=== PATIENT | female | born 1995 | race Caucasian/White ===

== ENCOUNTER 2016-06-02 14:05 | Emergency (ER) | payer OTHER ==
--- NOTE | ~2016-06-02 | EKG ---
PATIENT: GLENN RO UNIT #: [id number] Ventricular Rate: 98 BPM Atrial Rate: 98 BPM P-R Interval: 130 ms QRS Duration: 74 ms Q-T Interval: 346 ms QTC Calculation(Bezet): 441 ms P [place]: 57 degrees Calculated R [place]: 75 degrees Calculated T [place]: 44 degrees Diagnosis Line: Normal sinus rhythm Diagnosis Line: Normal ECG Diagnosis Line: When compared with ECG of 07-NOV-2015 22:52, Diagnosis Line: No significant change was found Diagnosis Line: Confirmed by WAGNER FORBES MD ([id number]) on 06/05/2016 Diagnosis Line: 10:46:26 PM INTERPRETING MD: LEIDY BARNARD
[~2016-06-02 14:05] MED LIST: APRISO0.375 GM PO; AUGMENTIN; AUGMENTIN PO; BACTRIM 400-801 TA1 PO; BACTRIM DS TABL1 TA1 PO; BACTROBAN22 GM TOP; BACTROBAN22 GM TP; BENTYL20 M1 PO; BENTYL20 MG PO; CLARITIN10 M1; DIFLUCAN PO; FLAGYL PO; FLOXIN10 ML OT; LAMICTAL PO; LORATADINE; MEDROL4 MG/DOSE- PO; MOOD STABILIZER; MOTRIN600 M2 PO; NO MEDICATIONS; PHENERGAN25 M1 PO; PHENERGAN25 MG PO; PREDNISONE10 MG/DOSE PO; ROBAXIN500 MG PO; TESSALON200 MG PO; TORADOL10 MG PO; VIVANSE; VYVANSE40 MG PO; ZITHROMAX PO; ZOFRAN ODT4 MG PO; [UNRECOGNIZED DRUG - OTHER]
[2016-06-02 14:59] LABS: URINE SOURCE CLEAN CATCH
[2016-06-02 15:05] LABS: BASOPHIL# 0.1 X10e3 (0-0.3); BASOPHIL% 0.9 % (0-2.5); EOSINOPHIL# 0.2 X10e3 (0-0.7); EOSINOPHIL% 2.6 % (0.0-7.0); HEMATOCRIT 40.1 % (35.0-45.0); HEMOGLOBIN 13.3 gm/dL (12.0-16.0); LYMPHOCYTE# 1.9 X10e3 (1.0-3.5); LYMPHOCYTE% 29.8 % (17.0-45.0); MEAN CELL VOLUME 86.6 FL (83-96); MEAN CORPUSCULAR HEMOGLOBIN 28.8 PG (28-34); MEAN CORPUSCULAR HGB CONC 33.3 g/dL (30-36); MEAN PLATELET VOLUME 8.6 FL (6.5-11.5); MONOCYTE# 0.5 X10e3 (0-1.0); MONOCYTE% 7.8 % (3.0-12.0); NEUTROPHIL# 3.8 X10e3 (1.5-7.1); NEUTROPHIL% 58.9 % (40-75); PLATELET COUNT 257 X10e3 (140-420); RED BLOOD COUNT 4.64 X10e (3.90-5.30); RED CELL DISTRIBUTION WIDTH 13.2 % (11.0-15.5); WHITE BLOOD COUNT 6.4 X10e3 (4.0-10.5)
[2016-06-02 15:06] LABS: URINE APPEARANCE CLEAR; URINE BILIRUBIN NEG (NEG); URINE BLOOD NEG (NEG); URINE COLOR DK YELLOW; URINE GLUCOSE NEG (NEG); URINE KETONE NEG (NEG); URINE LEUKOCYTE ESTERASE NEG (NEG); URINE NITRATE NEG (NEG); URINE PROTEIN NEG (NEG); URINE SPECIFIC GRAVITY 1.027 (1.003-1.035)
[2016-06-02 15:09] LABS: DIFF IND NO
[2016-06-02 15:09] LABS: CULTURE INDICATED? NO
[2016-06-02 15:28] LABS: BILIRUBIN, DIRECT 0.1 mg/dL (0.0-0.2); BILIRUBIN,INDIRECT 0.8 mg/dL (0.0-0.9); BILIRUBIN,TOTAL 0.9 mg/dL (0.2-2.0); CALCIUM SERUM 9.4 mg/dL (8.4-10.2); CREATININE SERUM 0.5 mg/dL (0.6-1.4); GLOM FILT RATE Estimated 139.3 mL/min (>60); PROTEIN TOTAL SERUM 7.6 g/dL (6.0-8.3)
== END 2016-06-02 16:03 | disposition home or self-care (01) ==
LOC: CED 14:05
PROVIDERS: Emergency Medicine
DX: I95.9 Hypotension, unspecified (principal); E86.0 Dehydration
CPT/HCPCS: 36415; 80048; 80076; 81003; 84703; 85025; 93005; 96360; 99284